=== PATIENT | female | born 1985 | race Caucasian/White ===

== ENCOUNTER 2017-05-18 15:12 | Emergency (ER) | payer MEDICAID, OTHER ==
[~2017-05-18 15:12] MED LIST: MUCI600T PO
[2017-05-18 15:57] VITALS: BP 172/79; PULSE 61; TEMP 97.2; O2SAT 96
[2017-05-18 16:11] VITALS: BP 111/59; PULSE 88; RESP 20; TEMP 98.3; O2SAT 98
[2017-05-18 17:24] LABS: BILIRUBIN, URINE NEG (NEG); BLOOD, URINE LARGE (NEG); GLUCOSE,URINE NEG (NEG); KETONE, URINE 15 mg/dL (NEG); NITRITE,URINE NEG (NEG); URINE LEUKOCYTE ESTERASE MOD (NEG)
[2017-05-18 17:36] LABS: URINE COLOR YELLOW (YELLW/STRAW)
[2017-05-18 17:37] LABS: SQUAMOUS EPITHELIAL CELL URINE 0-5 /hpf (0-5)
--- NOTE | 2017-05-18 18:41 | PD ---
HPI Chief Complaint: urinary symptoms Time Seen by Provider: 18:34 Travel History International Travel<30 days: No Contact w/Intl Traveler<30days: No Traveled to known affect area: No History of Present Illness HPI Patient comes in complaining of suprapubic abdominal pain that began around 2: 30 today. Pain crampy like in nature radiating to her low back. Patient reports difficulty urinating yesterday and dysuria with voiding today. Denies any chest pain, shortness of breath, vaginal discharge, fevers, nausea, vomiting , loss or change in bowel, or numbness or tingling anywhere. Patient is uncertain if she is . Denies anything making symptoms better or worse. Patient reports history of kidney stones and is uncertain if she was having another one. [facility] Past Medical History Kidney Stones: Yes ?: Not LMP: MAY 08 Social History Alcohol Use: No Tobacco Use: No Substance Use: No Allergies-Medications (Allergen,Severity, Reaction): Coded Allergies: No Known Allergies (Unverified Adverse Reaction, Unknown, 05/18/17) Reported Meds & Prescriptions Reported Meds & Active Scripts Active Bactrim DS (Sulfamethoxazole-Trimethoprim) 800-160 Mg Tab 1 Tab PO BID Review of Systems Except as stated in HPI: all other systems reviewed are Neg Physical Exam Narrative GENERAL: Well-developed, overly nourished, in no acute distress, and non-ill appearing. SKIN: Focused skin assessment warm and dry. HEAD: Atraumatic. Normocephalic. EYES: Pupils equal and round. EOMI. No scleral icterus. No injection or drainage. ENT: No nasal bleeding or discharge. Mucous membranes pink and moist. NECK: Trachea midline. Supple. No nuclear rigidity. CARDIOVASCULAR: Regular rate and rhythm. No murmur appreciated. RESPIRATORY: No accessory muscle use. No respiratory distress. GASTROINTESTINAL: Abdomen soft, nondistended, and no guarding. Hepatic and splenic margins not palpable. Normal bowel sounds 4. No pulsatile mass. No CVA tenderness. Patient reports tenderness to palpation suprapubic area. MUSCULOSKELETAL: No obvious deformities. No clubbing. No cyanosis. No edema. Full range of motion. NEUROLOGICAL: Awake and alert. No obvious cranial nerve deficits. Motor grossly within normal limits. Normal speech. PSYCHIATRIC: Appropriate mood and affect; insight and judgment normal. Data Data Last Documented VS Vital Signs Date Time Temp Pulse Resp B/P (MAP) Pulse Ox O2 Delivery O2 Flow Rate FiO2 05/18/17 16:11 98.3 88 20 111/59 (76) 98 Orders Orders Urinalysis - C+S If Indicated (05/18/17 15:58) Ed Urine Pregnancytest Poc (05/18/17 15:58) Urine Culture (05/18/17 16:00) Ct Abd/Pel W/O Iv Contrast (05/18/17 18:43) Iv Access Insert/Monitor (05/18/17 18:43) Ecg Monitoring (05/18/17 18:43) Oximetry (05/18/17 18:43) Sodium Chloride 0.9% Flush (Ns Flush) (05/18/17 18:45) Ed Discharge Order (05/18/17 19:46) Labs Laboratory Tests Test 05/18/17 16:00 Urine Color YELLOW Urine Turbidity MOD Urine pH 6.0 Urine Specific [place] 1.022 Urine Protein 100 mg/dL Urine Glucose (UA) NEG mg/dL Urine Ketones 15 mg/dL Urine Occult Blood LARGE Urine Nitrite NEG Urine Bilirubin NEG Urine Leukocyte Esterase MOD Urine RBC 10-14 /hpf Urine WBC 50-99 /hpf Urine Squamous Epithelial Cells 0-5 /hpf Microscopic Urinalysis Comment CULTURE INDICATED MDM Medical Decision Making Medical Screen Exam Complete: Yes Emergency Medical Condition: Yes Interpretation(s) Last Impressions Abdomen/Pelvis CT 05/18/17 184 Signed Impressions: Service Date/Time: Thursday, May 18, 2017 19:23 - CONCLUSION: Normal examination. Alfonso Fontana MD Differential Diagnosis UTI, pyelonephritis, renal calculi, STD Narrative Course The patient presentation with history and evaluation are consistent with UTI. There is no evidence of pyelonephritis. The patient is tolerating fluids and no fever. There is no clinical evidence to suggest atypical cervicitis, PID, appendicitis. The patient was discharged on antibiotics and given warnings to return if condition worsens in any way, fever, vomiting and unable to tolerate medications or fluids, back pain or as needed. The patient was instructed to follow up with their physician. The patient agrees with plan of care. Patient in no obvious distress upon re-evaluation. Patient declined pelvic exam. States she'll follow up outpatient for pelvic exam if symptoms don't get better. All pertinent laboratory/Radiology result(s) discussed with patient. Patient was asked if they wanted to speak to my attending, which the patient did not wish to do at this time. Any questions/concerns in reference to patient diagnosis/condition discussed and clarified prior to patient's discharge. Reinforced sheer importance of close follow up with patient's primary physician or primary care clinic. Instructed patient to return to ED immediately, if symptoms return/worsen. Patient showed understanding of above instructions. Further instructions and recommendations were detailed in discharge paperwork. Patient ambulated without difficulty out of ED at discharge. Diagnosis Primary Impression: UTI (urinary tract infection) Qualified Codes: N39.0 - Urinary tract infection, site not specified; R31.9 - Hematuria, unspecified Referrals: [facility]. Patient Instructions: General Instructions, Urinary Tract Infection in Women ( ED) Additional Instructions: Follow-up with your primary care physician next week for reevaluation and possible pelvic exam. Take all medication as prescribed. Return to the emergency department if symptoms get worse. Med/Other Pt SpecificInfo: Prescription(s) given Scripts Sulfamethoxazole-Trimethoprim (Bactrim DS) 800-160 Mg Tab 1 TAB PO BID for Infection, #20 TAB 0 Refills Prov: Eze Cook MD 05/18/17 Disposition: 01 DISCHARGE HOME Condition: Stable Cesar Costa May 18, 2017 18:41
[2017-05-18] MEDS ORDERED: SODIUM CHLORIDE 0.9% FLUSH 10 ML FLUSH IV FLUSH PRN (18:45)
--- NOTE | 2017-05-18 19:41 | RADRPT ---
EXAM DATE/TIME: 05/18/2017 19:23 [place] COMPARISON: No previous studies available for comparison. INDICATIONS : Pubic pain that radiates to left flank. ORAL CONTRAST: No oral contrast ingested. RADIATION DOSE: 16.94 CTDIvol (mGy) MEDICAL HISTORY : Renal calculi. SURGICAL HISTORY : None. ENCOUNTER: Initial ACUITY: 1 day PAIN SCALE: 5/10 LOCATION: Left flank TECHNIQUE: Volumetric scanning of the abdomen and pelvis was performed. Using automated exposure control and ad justment of the mA and/or kV according to patient size, radiation dose was kept as low as reasonably achievable to obtain optimal diagnostic quality images. DICOM format image data is available electro nically for review and comparison. FINDINGS: LOWER LUNGS: The visualized lower lungs are clear. LIVER: Homogeneous density without lesion. There is no dilation of the biliary tree. No calcified gallston es. SPLEEN: Normal size without lesion. PANCREAS: Within normal limits. KIDNEYS: Normal in size and shape. There is no mass, stone, or hydronephrosis. ADRENAL GLANDS: Within normal limits. VASCULAR: There is no aortic aneurysm. BOWEL/MESENTERY: The stomach, small bowel, and colon demonstrate no acute abnormality. There is no free intraperitone al air or fluid. ABDOMINAL WALL: Within normal limits. RETROPERITONEUM: There is no lymphadenopathy. BLADDER: No wall thickening or mass. REPRODUCTIVE: Within normal limits. INGUINAL: There is no lymphadenopathy or hernia. MUSCULOSKELETAL: Within normal limits for patient age. CONCLUSION: Normal examination. Alfonso Fontana MD on May 18, 2017 at 19:37 Board Certified Radiologist. This report was verified electronically.
[2017-05-18] MEDS ORDERED: BACT800T5 PO (19:44)
== END 2017-05-18 19:56 | disposition home or self-care (01) ==
LOC: PHED 15:12 → PHEFT 19:56
DX: N39.0 Urinary tract infection, site not specified (principal); B96.4 Proteus (mirabilis) (morganii) as the cause of diseases classified elsewhere; R31.9 Hematuria, unspecified; Z87.442 Personal history of urinary calculi
CPT/HCPCS: 74176; 81001; 84703; 87077; 87086; 87186